=== PATIENT | female | born 1955 | race Caucasian/White ===

== ENCOUNTER 2016-08-17 09:40 | Inpatient (IN) | payer BC ==
--- NOTE | 2016-08-11 13:03 | HP ---
HISTORY AND PHYSICAL: DATE OF OFFICE VISIT: 08/11/16. DATE OF SURGERY: 08/17/16. SURGEON: Neisha Maravilla MD. PROCEDURE: Right total knee arthroplasty. CHIEF COMPLAINT: Right knee pain. HISTORY OF PRESENT ILLNESS: Ms. Townsend is a 60-year-old female with complaints of right knee pain. She has failed conservative management and has elected to proceed with a right total knee arthropla sty, which is scheduled for 08/17/[address] Sawant. PAST MEDICAL HISTORY: 1. Obesity. 2. Hypertension. 3. Sleep apnea. 4. Hypothyroidism. 5. Hiatal hernia. 6. Kidney stones. PAST SURGICAL HISTORY: 1. Gastric sleeve. 2. Partial parathyroidectomy. 3. Tubal ligation. 4. Ganglion cyst removal. 5. Tonsillectomy and adenoidectomy. CURRENT MEDICATIONS: 1. Vitamin D daily. 2. Multivitamin. 3. Vitamin B12. 4. Cymbalta 30 mg once a day. 5. Cozaar 50 mg once a day. 6. Metoprolol 25 mg once a day. 7. Ibuprofen 400 mg. 8. Tylenol 325. ALLERGIES: No known drug allergies. FAMILY HISTORY: Heart disease, hypertension, diabetes, breast cancer, and AFib. SOCIAL HISTORY: She is a 60-year-old female. She lives with her . She is a RN at [employer], [place]. She does not smoke or use drugs. She uses occasional alcohol. REVIEW OF SYSTEMS: A complete 14-point review of systems was reviewed with the patient, it was posi tive for hypothyroidism. PHYSICAL EXAMINATION GENERAL: She is a 60-year-old obese female. She is in no acute distress. VITAL SIGNS: She stands 5 feet tall, weighs 211 pounds. Her blood pressure is 168/98, her heart ra te is 63. HEENT: Normocephalic, atraumatic. NECK: Supple. No palpable lymph nodes. Trachea is midline. CARDIOLOGY: Regular rate and rhythm. Strong S1 and S2. No murmurs, gallops or rubs. No periphera l edema. PULMONARY: The lungs are clear to auscultation bilaterally. No wheezes, rales or rhonchi. ABDOMEN: Soft, nontender, nondistended. MUSCULOSKELETAL: Right lower extremity, the skin is intact. She has moderate effusion tenderness o flavio the medial and lateral joint line. No varus or valgus instability. Negative Alberto. She walk s with a slightly antalgic type gait favoring her right leg. Her lower extremity muscle group stren gth is intact at 5/5. She has 2+ dorsalis pedis pulse and intact sensation. NEUROLOGICAL: She is alert and oriented x3. Cranial nerves II through XII are intact. ASSESSMENT AND PLAN: Ms. Townsend is a 60-year-old female with complaints of right knee pain seconda ry to advanced osteoarthritis. She has failed conservative management and has elected to proceed wi th a right total knee arthroplasty, which is scheduled for 08/17/[address] Sawant discu ssed the risks and benefits of the surgery at today's visit and all of her questions were answered. Percocet, Colace, and Coumadin were sent to her pharmacy today for postoperative pain control and DV T prophylaxis. She will see Dr. Sawant back in 10 to 14 days after the surgery. BIJAN LIANG [id number]/[facility] #: [id number]
[~2016-08-17 09:40] MED LIST: Buffered Lidocaine 1% SYRIN* 3 ML/SYR SYRINGE INTRADERM ONE; Famotidine IV* 10 MG/ML 2 ML (20 mg) IV ONE; Famotidine IV* 10 MG/ML 2 ML (20 mg) ONE; Morphine INJ* 2 MG/ML 1 ML SYRINGE IV PRN; PROCHLORPERAZINE INJ 5 MG/ML 2 ML VIAL IV PRN; ceFAZolin 2 GM PREMIX(*) 2 GM/50 ML BAG IVPB ONE; oxyCODONE/Acetamin 5/325 MG* TAB PO PRN
[2016-08-17] MEDS ORDERED: Morphine PF AMP (0.5MG/ML)* 5 MG/10 ML AMP ONE (10:31)
[2016-08-17] MEDS ORDERED: fentaNYL* 50 MCG/ML 2 ML VIAL (100 MCG VIAL) ONE ×2 (10:31→14:46)
[2016-08-17] MEDS ORDERED: KETAMINE HCL* 50 MG/ML 10 ML VIAL ONE (10:31)
[2016-08-17] MEDS ORDERED: Midazolam* 1 MG/ML 10 ML VIAL (10 MG) ONE (10:31)
[2016-08-17] MEDS ORDERED: Ondansetron INJ* 2 MG/ML VIAL IV PRN (12:46)
[2016-08-17] MEDS ORDERED: EPHEDrine (Pressors)* 50 MG/ML VIAL IV PUSH PRN (12:46)
[2016-08-17] MEDS ORDERED: Lactated Ringers 500 ml BAG* 500 ML IV PRN (12:46)
[2016-08-17] MEDS ORDERED: diPHENhydraMINE IV* 50 MG/ML 1 ml VIAL (BENADRYL) IV PRN (12:46)
[2016-08-17] MEDS ORDERED: PROCHLORPERAZINE INJ 5 MG/ML 2 ML VIAL IV PRN (12:46)
[2016-08-17] MEDS ORDERED: oxyCODONE/Acetamin 5/325 MG* TAB PO PRN (12:46)
[2016-08-17] MEDS ORDERED: Hetastarch in NS* 500 ML IV PRN (12:46)
[2016-08-17] MEDS ORDERED: Nalbuphine* 20 MG/ML 1 ML VIAL IV PRN (12:46)
[2016-08-17] MEDS ORDERED: Ketorolac INJ* 15 MG/ML 1 ML VIAL IV PRN (12:46)
[2016-08-17] MEDS ORDERED: Scopolomine PATCH Remove* 1 NOTE MISC PATCH OFF SCH (13:00)
[2016-08-17] MEDS ORDERED: Hetastarch in NS* 500 ML IV ONE (13:12)
[2016-08-17] MEDS ORDERED: Ropivacaine 0.2% EPIDURAL* 200 MG/100 ML BAG EPIDURAL ONE (13:44)
[2016-08-17] MEDS ORDERED: Acetaminophen TAB* 325 MG PO PRN (14:37)
[2016-08-17] MEDS ORDERED: Bisacodyl SUPP* 10 MG SUPP PR PRN (14:37)
[2016-08-17] MEDS ORDERED: Magnesium Hydroxide LIQ* 30 ML UDC PO PRN (14:37)
[2016-08-17] MEDS ORDERED: LACTULOSE* 30 ML UDC PO PRN (14:37)
[2016-08-17] MEDS ORDERED: Polyethylene Glycol 3350* 17 GM PACKET PO PRN (14:37)
[2016-08-17] MEDS ORDERED: Phenylephrine INJ* 10 MG/ML 1 ML VIAL (10 MG) ONE (14:42)
[2016-08-17] MEDS ORDERED: Propofol* 500 MG/50 ML BTL ONE (14:42)
[2016-08-17] MEDS ORDERED: Bupivacaine 0.5% SDV PF* 30 ML VIAL ONE (14:42)
[2016-08-17] MEDS ORDERED: Scopolamine 1.5 mg* PATCH ONE (14:42)
[2016-08-17] MEDS ORDERED: Ondansetron INJ* 2 MG/ML VIAL ONE (14:43)
[2016-08-17] MEDS ORDERED: Dexamethasone IV* 4 MG/ML 1 ML (4 MG) ONE (14:43)
[2016-08-17] MEDS: fentaNYL* 50 MCG/ML 2 ML VIAL (100 MCG VIAL) IV PRN ×2 (14:47→14:59)
[2016-08-17] MEDS ORDERED: Naloxone* 0.4 MG/ML 1 ML VIAL IV PRN (14:54)
--- NOTE | 2016-08-17 15:23 | RAD ---
Indication: Postop RIGHT total knee replacement. Comparison: August 11, 2016 Technique: Portable AP and cross table lateral views RIGHT knee. Report: Status post total knee replacement. Anterior surgical drain in place. Post-op fluid and gas is seen in the joint space and anterior subcutaneous tissues. Alignment is anatomic. No periprosthetic fracture evident. IMPRESSION: Normal post-op appearance following RIGHT total knee replacement.
[2016-08-17] MEDS: Ropivacaine 0.2% EPIDURAL* 200 MG/100 ML BAG EPIDURAL SCH ×2 (15:25→23:15)
[2016-08-17] MEDS ORDERED: Warfarin TAB(*) 6 MG PO ONE (18:00)
[2016-08-17] MEDS: Docusate CAP* 100 MG PO SCH (20:53)
[2016-08-17] MEDS: ceFAZolin 1 GM in Dextrose (*) 1 GM/50 ML BAG IVPB SCH (20:53)
--- NOTE | 2016-08-17 23:04 | CONS ---
[facility] MEDICINE CONSULTATION REPORT: DATE OF CONSULTATION: 08/17/16 ATTENDING PHYSICIAN: Neisha Sawant MD CONSULTING PHYSICIAN: Shakeel Clinton MD (dictation provided by Blanquita Mccain NP ) REASON FOR CONSULTATION: Medical management in a patient admitted for right total knee arthroplasty. HISTORY OF PRESENT ILLNESS: Ms. Townsend is a 60-year-old female with past medical history of obesity, hypertension, sleep apnea who presented to the hospital today with plan for an elective right total knee arthroplasty. Please see the dictated H and P from Dr. Sawant for complete details. In brief, the patient had failed conservative management and opted for operative intervention. Ms. Townsend states that she recently had gastric sleeve surgery with Dr. Lauren in January. Since then, she has lost 65 pounds. Her plan was to undergo this surgery and the weight loss in an effort to get to a place where she could have bilateral knee surgery starting with right knee today. Prior to coming to the hospital, she was in a good state of health. She was seen by Dr. Viera prior to surgery for preoperative evaluation. Only plan at that point was for the patient to decrease duloxetine via slow taper. The patient does have a history of some very mild elevation in her TSH and plan is for Dr. Viera to manage initiation of thyroid hormone replacement when she is done with surgeries. In addition, the patient has a history of hypertension and takes metoprolol and losartan with good effect. PAST MEDICAL HISTORY: 1. Obesity. 2. Hypertension. 3. Sleep apnea. 4. Hypothyroidism. 5. Hiatal hernia. 6. Kidney stones. PAST SURGICAL HISTORY: 1. Gastric sleeve in January 2016. 2. Partial parathyroidectomy. 3. Tubal ligation. 4. Ganglion cyst removal. 5. Tonsillectomy. 6. Adenoidectomy. OUTPATIENT MEDICATIONS: 1. Vitamin D. 2. Multivitamin. 3. Vitamin B12. 4. Cymbalta 30 mg p.o. daily. 5. Cozaar 50 mg p.o. daily. 6. Metoprolol tartrate 25 mg p.o. q.a.m. 7. Ibuprofen 400 mg p.o. daily p.r.n. 8. Tylenol p.r.n. ALLERGIES: No known drug allergies. FAMILY HISTORY: Reportedly father is still alive. Mother at 38 of breast cancer. SOCIAL HISTORY: The patient denies alcohol, tobacco, or drug use. She lives with her , who is the healthcare proxy. REVIEW OF SYSTEMS: A 14-point review of systems was completed with Ms. Townsend today and all those not mentioned above were negative. PHYSICAL EXAMINATION: Vital Signs: Temperature 96.9, heart rate 50, respiratory rate 16, O2 saturation 100% on 2 L nasal cannula, blood pressure 118 /74. General: Ms. Townsend is sitting up in the bed. She is in no acute distress. She is calm and cooperative with my examination. Neuro: She is alert and oriented x3. She moves all extremities equally. There is no facial asymmetry or focal weakness. Heart: S1, S2. No murmur, rub, or gallop and regular. Lungs: Clear to auscultation bilaterally with no accessory muscle use and good aeration. The abdomen is soft, nontender with bowel sounds positive x4. Extremities: No cyanosis or edema. Skin is intact. DIAGNOSTIC STUDIES/LABORATORY DATA: Preoperatively, on 08/16/16, WBC 4.8, hemoglobin 13.2, hematocrit 40, platelet count 240. Sodium 139, potassium 4.3, chloride 107, serum bicarbonate 31, BUN 15, creatinine 0.69. ASSESSMENT: Ms. Townsend is a 60-year-old female with a past medical history of hypertension, gastric sleeve surgery with 65-pound weight loss with Dr. Lauren in January who presents today to the hospital with plan for right knee arthroplasty. RECOMMENDATIONS: 1. Right knee arthroplasty: The patient is postop day #0. Management per Orthopedic Surgery. The patient will have pain medications with bowel regimen. She will have physical and occupational therapy. Her H and H will be monitored closely. 2. History of hypertension. Plan to continue her losartan and metoprolol. 3. History of hypothyroidism. Plan to defer to Dr. Viera for management as an outpatient as she is already aware of this. 4. Sleep apnea. The patient will be monitored via pulse oximetry for overnight tonight. 5. DVT prophylaxis with Lovenox and warfarin per Dr. Sawant. 6. Disposition will be per orthopedic team. TIME SPENT: Approximately 60 minutes were spent on consultation of this patient with more than half the time spent with the patient at the bedside, reviewing the events leading up to and during this hospitalization thus far, performing the physical examination, and reviewing the plan of care. BLANQUITA MCCAIN, TRANSPORT PILOT [id number]/[facility] #: [id number] [facility]umar
[2016-08-18] MEDS: ceFAZolin 1 GM in Dextrose (*) 1 GM/50 ML BAG IVPB SCH ×2 (04:16→12:25)
[2016-08-18] MEDS ORDERED: Ondansetron TAB* 4 MG PO PRN (06:50)
[2016-08-18] MEDS ORDERED: oxyCODONE/Acetamin 5/325 MG* TAB PO PRN (06:50)
[2016-08-18] MEDS ORDERED: diPHENhydraMINE LIQ* 12.5 MG/5 ML UDC PO PRN (06:50)
[2016-08-18] MEDS ORDERED: Morphine INJ* 2 MG/ML 1 ML SYRINGE IV PRN (06:50)
[2016-08-18 07:04] LABS: Hematocrit 30 % (35-47); Hemoglobin 10.2 g/dl (12.0-16.0)
[2016-08-18] MEDS: oxyCODONE TAB* 5 MG TAB PO PRN ×3 (07:18→17:21)
[2016-08-18 07:24] LABS: BUN/Creatinine Ratio 22.5 (8-20); Calcium 8.4 mg/dL (8.6-10.3); EGFR African American 108.4 (>60); EGFR Non-African American 84.3 (>60); Potassium 3.7 mmol/L (3.5-5.0)
--- NOTE | 2016-08-18 07:29 | PN ---
Progress Note - Progress Note SOAP: Subjective: Pt. reports pain controlled overnight. Objective: RLE - drain removed, tip intact with 300 cc ss drainage. distally +df/pf, full sens lt, 2+ dp pulse. 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 xrays satisfactory possible d/c to home tomorrow
--- NOTE | 2016-08-18 08:12 | OP ---
DATE OF OPERATION: 08/17/16 - ROOM #447 DATE OF : 57 SURGEON: Neisha Sawant MD REGIONAL GEODETIC ADVISOR: BIJAN Fine ANESTHESIOLOGIST: Dr. Recinos. ANESTHESIA: Spinal with adductor nerve block. PRE-OP DIAGNOSIS: Severe end-stage degenerative osteoarthritis of the right knee joint. POST-OP DIAGNOSIS: Severe end-stage degenerative osteoarthritis of the right knee joint. OPERATIVE PROCEDURE: Right total knee arthroplasty. TOURNIQUET TIME: 50 minutes. COMPLICATIONS: None. ESTIMATED BLOOD LOSS: 300 mL. SPECIMENS: Bone and cartilage from the right knee joint sent to pathology. HARDWARE USED: This is [employer] cemented total knee arthroplasty hardware. For the femur, a size 5 right narrow Oxinium femoral component. For the tibia, a size 3 tibial base plate. For the insert, a 15 mm posterior stabilized articular insert size 3-4. For the patella, 29-mm 3-peg all-poly patella. BRIEF HISTORY/INDICATIONS: Ms. Townsend is a 60-year-old female with years of severe right knee pain. Radiographs showed [id number] contact. She failed conservative treatment with antiinflammatories, pain medications, intraarticular injections, physical therapy, and weight loss. She elected to have right total knee arthroplasty due to continued severe pain and decreased quality of life. Informed consent was obtained from the patient. She understood the risks of the procedure included, but were not limited to bleeding, infection, damage to nearby structures, continued pain, need for further surgery, intraoperative fracture, nerve palsy, hardware failure or loosening, stroke, heart attack, blood clot, and . She wished to proceed. INTRAOPERATIVE FINDINGS: Intraoperatively, the patient had severe arthritis of the right knee joint with significant bone loss along the medial tibial plateau. Complete loss of cartilage in a tricompartmental fashion. Preop flexion contracture was 10 degrees. DESCRIPTION OF PROCEDURE: Ms. Townsend was identified in the preanesthesia unit. Her right lower extremity was marked as the correct operative side. Informed consent was signed and placed in the chart. The patient was taken to the operating room and placed under spinal anesthesia with an adductor nerve block. Novak catheter was placed. Tourniquet was placed on the right thigh. The right lower extremity was prepped and draped in the usual sterile fashion. Preop time-out was made to correctly identify the patient side and site. Appropriate preoperative antibiotics were given within 1 hour of incision. Tourniquet was inflated until the tourniquet time for this procedure was 50 minutes. A 14 cm midline incision was made with the 10 blade and carried down to the extensor mechanism. A new 10 blade was used to make a standard medial parapatellar arthrotomy. Patella was subluxed laterally. Electrocautery was used to subperiosteally elevate soft tissue off the superomedial tibia to the mid sagittal plane. A large amount of osteophyte along the medial tibial plateau was carefully removed with a Rongeur. The knee was flexed up. A drill was used to enter the distal femur. Intramedullary distal femoral cutting guide was placed and pinned into proper position. Oscillating saw was used to make the appropriate distal femoral cut. The external rotation guide was pinned on the distal femur, and the distal femur was sized to a size 5. Size 5 multi-cutting jig was pinned on the distal femur. The oscillating saw was used to make the appropriate four chamfer cuts. The PCL was completely released and the tibia was subluxed anteriorly. Extramedullary tibial cutting guide was placed and pinned into proper position. An oscillating saw was used to make the proximal tibial cut. This cut was made perpendicular to the mechanical axis of the tibia. The knee was brought out into full extension. The spacer block had good fit. There was good medial and lateral ligamentous balancing. Flexion and extension gaps were well balanced. The knee was flexed up. Lamina independent sales representative was placed both medially and laterally. Any remaining meniscus was carefully removed with electrocautery. Curved osteotome was used to remove any posterior osteophytes. Tibial tray and drop neil were placed and once again confirmed satisfactory tibial cut. A size 5 narrow right femoral trial was chosen and impacted onto the distal femur. This had excellent fit. The box for the posterior stabilized implant was prepared using a reamer and box cut osteotome. A trial size 9 insert with an 11 mm insert trial was placed. The knee was taken through a range of motion and noted to have full extension to 120 degrees of flexion with good patellofemoral tracking. The patella was everted and had extensive wear. 9 mm of patellar bone and cartilage were carefully removed with an oscillating saw. The patella was sized to a size 29. The three peg holes were drilled through the size 29 guide. A 29 trial patella was placed and the knee was taken through a range of motion. There was good patellofemoral tracking. All trials were carefully removed at this time. The tibia was subluxed anteriorly and sized to a size 3. Proximal tibia was prepared using keel punch size 3. All bony cut surfaces were copiously irrigated with sterile saline and dried. Final implants were cemented into place and starting with the tibia, followed by the femur, and lastly the patella. A 13-mm insert trial was placed while the knee was brought out in full extension. The cement was allowed to fully cure, and tourniquet was turned down at 50 minutes. Once the cement was fully cured, the knee was copiously irrigated with sterile saline. The insert trial was removed. Any extra cement was carefully removed from around the implants. Electrocautery was used to obtain meticulous hemostasis. The 13 and 15 mm insert trials were trialed. A 15 mm insert trial had the best stability and range of motion of the knee. A 15 mm posterior stabilized articular insert was chosen as the final implant, and locked into position on the tibial tray. Stability of the insert was checked and rechecked, and noted to be stable. The knee was once again copiously irrigated with sterile saline. The extensor mechanism was closed over a medium Hemovac drain using interrupted #1 Vicryls. The rest of the incision was closed in a layered fashion using 0 and 2-0 Vicryls. The skin was closed using running 3-0 nylon suture. Sterile Xeroform, 4x4s, and Webril were used to cover the incision. John wrap and cold pack were placed over this. The patient's anesthesia was reversed without difficulty. She was taken to the PACU in stable condition. Intended weightbearing will be weightbearing as tolerated. Intended DVT prophylaxis will be Coumadin with a Lovenox bridge. [id number]/[facility] #: [id number] [place]
[2016-08-18] MEDS: Losartan TAB* 25 MG PO SCH (09:15)
[2016-08-18] MEDS: Metoprolol Tartrate TAB* 25 MG PO SCH (09:15)
[2016-08-18] MEDS: oxyCODONE/Acetamin 5/325 MG* TAB PO PRN ×2 (09:16→12:59)
[2016-08-18] MEDS: Docusate CAP* 100 MG PO SCH ×2 (09:17→19:56)
[2016-08-18] MEDS: DULoxetine DR CAP* 30 MG CAP.DR PO SCH (09:17)
[2016-08-18] MEDS ORDERED: Ondansetron INJ* 2 MG/ML VIAL IV ONE (11:36)
--- NOTE | 2016-08-18 14:09 | PN ---
Progress Note - Progress Note Note: Anesthesia duramorph/epidural followup. No pain last night. Epidural out this AM. Neuro ok, VSS, no HELLER. s/p TKR, continue oral meds.
[2016-08-18] MEDS: Enoxaparin(*) 30 MG/0.3 ML SYR SUBCUT SCH (14:46)
[2016-08-18] MEDS ORDERED: Warfarin TAB(*) 4 MG PO SCH (17:00)
--- NOTE | 2016-08-18 18:15 | PN ---
Subjective Date of Service: 08/18/16 Interval History: Patient seen and examined at bedside. Denies fever, chills, shortness of breath , chest discomfort, V/D. Pt reports nausea earlier today, that has resolved. Family History: Unchanged from Admission Social History: Unchanged from Admission Past Medical History: Unchanged from Admission Objective Active Medications: Acetaminophen (Tylenol Tab*) 650 mg PO Q4H PRN Reason: PAIN OR TEMPERATURE Bisacodyl (Dulcolax Supp*) 10 mg DE DAILY PRN Reason: constipation Diphenhydramine HCl (Benadryl Liq*) 12.5 mg PO Q6H PRN Reason: itching Docusate Sodium (Colace Cap*) 100 mg PO BID RUPA Duloxetine HCl (Cymbalta Cap*) 30 mg PO QAM RUPA Enoxaparin Sodium (Lovenox(*)) 30 mg SUBCUT Q24H [facility] Lactated Ringer's (Lactated Ringers 1000 Ml Bag*) 1,000 mls @ 100 mls/hr IV PER RATE RUPA Lactulose (Lactulose*) 30 ml PO Q6H PRN Reason: constipation Losartan Potassium (Cozaar Tab*) 50 mg PO DAILY RUPA Magnesium Hydroxide (Milk Of Magnesia Liq*) 30 ml PO Q6H PRN Reason: constipation Metoprolol Tartrate (Lopressor Tab*) 25 mg PO QAM [facility] Morphine Sulfate (Morphine Inj (Syringe)*) 2 mg IV Q2H PRN Reason: PAIN Ondansetron HCl (Zofran Tab*) 4 mg PO Q6H PRN Reason: NAUSEA Oxycodone HCl (Roxycodone Tab*) 10 mg PO Q4H PRN Reason: SEVERE PAIN Oxycodone/Acetaminophen (Percocet 5/325 Tab*) 1 tab PO Q3H PRN Reason: PAIN - MODERATE Oxycodone/Acetaminophen (Percocet 5/325 Tab*) 2 tab PO Q3H PRN Reason: PAIN - MODERATE Pharmacy Profile Note (Scopolomine Patch Remove*) 1 note PATCH OFF .AFTER 72 HOURS ONE Pharmacy Profile Note (Coumadin Daily Reminder*) 1 note FOLLOW UP 1700 [facility] Polyethylene Glycol/Electrolytes (Miralax*) 17 gm PO DAILY PRN Reason: Constipation Warfarin Sodium (Coumadin Tab(*)) 8 mg PO DAILY@1700 [facility] Reason: Protocol Vital Signs 0308/17/16 08/17/16 19:02 19:15 21:04 Temperature 97.4 F 97.6 F Pulse Rate 63 52 Respiratory 16 16 16 Rate Blood Pressure 107/82 107/48 (mmHg) O2 Sat by Pulse 99 91 Oximetry 08/17/16 08/18/16 08/18/16 23:21 03:21 04:16 Temperature 97.4 F 98.2 F Pulse Rate 57 59 Respiratory 16 16 16 Rate Blood Pressure 114/55 109/51 (mmHg) O2 Sat by Pulse 100 99 Oximetry 08/18/16 08/18/16 08/18/16 07:20 07:31 09:16 Temperature 98.0 F Pulse Rate 59 Respiratory 16 16 20 Rate Blood Pressure 115/58 (mmHg) O2 Sat by Pulse 100 100 Oximetry 08/18/16 08/18/16 08/18/16 10:56 11:38 11:55 Temperature 98.1 F Pulse Rate 63 Respiratory 18 16 21 Rate Blood Pressure 152/76 (mmHg) O2 Sat by Pulse 100 Oximetry 08/18/16 08/18/16 08/18/16 12:59 15:28 16:00 Temperature 98.1 F Pulse Rate 59 Respiratory 18 18 Rate Blood Pressure 129/66 (mmHg) O2 Sat by Pulse 94 94 Oximetry 08/18/16 08/18/16 17:21 17:35 Temperature Pulse Rate Respiratory 18 Rate Blood Pressure (mmHg) O2 Sat by Pulse 94 Oximetry Oxygen Devices in Use Now: None Appearance: NAD, sitting up in a chair Eyes: No Scleral Icterus, PERRLA Ears/Nose/Mouth/Throat: NL Teeth, Lips, Gums, Mucous Membranes Moist Neck: NL Appearance and Movements; NL JVP, Trachea Midline Respiratory: Symmetrical Chest Expansion and Respiratory Effort, Clear to Auscultation Cardiovascular: NL Sounds; No Murmurs; No JVD, RRR Abdominal: NL Sounds; No Tenderness; No Distention Extremities: No Edema Skin: No Rash or Ulcers, - - Dressing to right knee clean, dry and intact Neurological: Alert and Oriented x 3, NL Muscle Strength and Tone Lines/Tubes/Other Access: Clean, Dry and Intact Peripheral IV - site benign Nutrition: Taking PO's Result Diagrams: 08/18/16 06:35 08/18/16 06:35 Assess/Plan/Problems-Billing Assessment: Ms. Townsend is a 60 yo female with PMH significant for obesity, HTN, and sleep apnea who presented to the hospital for an elective right total knee arthroplasty with Dr. Sawant. - Patient Problems (1) Status post right knee replacement Code(s): Z96.651 - PRESENCE OF RIGHT ARTIFICIAL KNEE JOINT SNOMED Code(s): 075128553 Comment: - POD #1, management per ortho - Continue PT, OT, bowel regime and pain medication - Trend HH (2) HTN (hypertension) Code(s): I10 - ESSENTIAL (PRIMARY) HYPERTENSION SNOMED Code(s): 33760753 Comment: - Mostly normotensive - Continue losartan and metoprolol (3) Hypothyroidism Code(s): E03.9 - HYPOTHYROIDISM, UNSPECIFIED SNOMED Code(s): 01176091 Comment: - Will defer to Dr. Viera for management as an outpatient (4) Sleep apnea Code(s): G47.30 - SLEEP APNEA, UNSPECIFIED SNOMED Code(s): 81852398 (5) DVT prophylaxis Code(s): GNI5229 - SNOMED Code(s): 355765720 Comment: - Warfarin and Lovenox per Ortho (6) Full code status Code(s): Z78.9 - OTHER SPECIFIED HEALTH STATUS SNOMED Code(s): 380652526 Status and Disposition: Inpatient. Disposition per Ortho. Will sign off at this time, please call with any questions.
[2016-08-19] MEDS: oxyCODONE/Acetamin 5/325 MG* TAB PO PRN ×3 (00:13→11:57)
[2016-08-19] MEDS: oxyCODONE TAB* 5 MG TAB PO PRN (03:22)
[2016-08-19 07:55] LABS: Hematocrit 32 % (35-47); Hemoglobin 11.1 g/dl (12.0-16.0)
[2016-08-19] MEDS: Docusate CAP* 100 MG PO SCH (08:13)
[2016-08-19] MEDS: Metoprolol Tartrate TAB* 25 MG PO SCH (08:13)
[2016-08-19] MEDS: DULoxetine DR CAP* 30 MG CAP.DR PO SCH (08:13)
[2016-08-19] MEDS: Losartan TAB* 25 MG PO SCH (08:13)
--- NOTE | 2016-08-19 09:50 | PN ---
Progress Note - Progress Note SOAP: Subjective: Pt is doing well. Pain is well controlled. Doing well with PT. Denies CP,SOB or calf pain. Objective: PE: 60 WDWN F in NAD lying in bed comfortably RLE- inc w/o erythema or signs of infection, dressing changed, +PF/DF ankle, calf soft nontender, NVI Vital Signs Temp Pulse Resp BP Pulse Ox 98.2 F 72 18 132/77 100 08/19/16 07:47 08/19/16 09:09 08/19/16 07:47 08/19/16 09:09 08/19/16 07:47 Laboratory Results - last 24 hr 08/19/16 08/19/16 07:27 07:27 Hgb 11.1 L Hct 32 L INR (Anticoag Therapy) 1.29 H Assessment: POD 2 s/p Right TKA Plan: DC to home with VNS WBAT RLE- cont PT cont coumadin, colace, percocet F/U 10-14 days
[2016-08-19 11:54] VITALS: BP 141/74
[2016-08-19] MEDS: Enoxaparin(*) 30 MG/0.3 ML SYR SUBCUT SCH (13:21)
--- NOTE | 2016-08-20 06:31 | DS ---
DISCHARGE SUMMARY: DATE OF ADMISSION: 08/17/16 DATE OF DISCHARGE: 08/19/16 PROVIDER: Dr. Neisha Sawant. ADMITTING DIAGNOSIS: Status post right total knee arthroplasty due to severe right knee arthritis. SECONDARY DIAGNOSES: 1. Obesity. 2. Hypertension. 3. Sleep apnea. 4. Hypothyroidism. 5. Hiatal hernia. 6. Kidney stones. CONSULTATIONS: Hospitalist, PT, and OT. HISTORY OF PRESENT ILLNESS: Ms. Townsend is a 60-year-old female, who presented to the clinic with complaints of ongoing right knee pain due to severe osteoarthritis. She failed conservative measures and therefore agreed to undergo a right total knee arthroplasty with Dr. Sawant on 08/17/16. HOSPITAL COURSE: Ms. Townsend was admitted to [facility] on 08/17/16. She underwent a right total knee arthroplasty. Postoperatively, she recovered on the short stay surgical unit. Postop day 1, Novak was removed and she was able to urinate on her own. She was advanced to a regular diet without difficulty and her pain was controlled with oral Percocet. She was restarted on home medications. Her labs and vitals remained stable. H and H were 10.2 and 30 and INR was 1.09 after 6 mg of Coumadin. She was able to weight bear as tolerated on the right lower extremity. She advanced appropriately with physical therapy and occupational therapy. On postop day 2, H and H were 11.1 and 32. INR was 1.29 after 8 mg of Coumadin. She was orthopedically and medically stable for discharge to home with VNS services. DISCHARGE CONDITION: Stable. DISCHARGE MEDICATIONS: At home medications continued at discharge to include: 1. Vitamin D 5000 units by mouth every morning. 2. Cymbalta 30 mg by mouth every morning. 3. Metoprolol tartrate 25 mg by mouth every morning. 4. Vitamin B12 1000 mcg sublingual every other day. 5. Ibuprofen 600 mg to 800 mg p.o. twice a day as needed for pain. 6. Losartan 50 mg by mouth daily. 7. Multivitamin 1 tab by mouth daily. New medications on discharge to include: 1. Colace 100 mg capsule by mouth twice a day. 2. Warfarin 2 mg take daily as directed by doctor. 3. Percocet 5/325 one to two tabs q.4 to 6 hours as needed for pain. DISCHARGE INSTRUCTIONS: The patient is weightbearing as tolerated right lower extremity. Activity as directed by Physical Therapy. She is to keep the dressing dry and intact. VNS will change dressing daily. May shower postop day 4, do not submerge in water such as bath, pools, or hot tubs. Suture removal on postop visit with Dr. Sawant. The patient was instructed to call the office or go to the ER if developed shortness of breath, chest pain, calf pain, or tenderness or fever greater than 101.5 degrees Fahrenheit. The patient will follow up with Dr. Sawant in 10 to 14 days for followup, suture removal, and x- rays. The patient will continue Percocet for pain, Colace for constipation, and Coumadin x1 month for DVT prophylaxis. The patient will take 8 mg of Coumadin Sunday, 8 mg Sunday, and will have blood redrawn on Sunday. The patient was instructed not to take aspirin or ibuprofen while on Coumadin. BIJAN REID [id number]/[facility] #: [id number] MTDD
[2016-08-20] MEDS ORDERED: Scopolomine PATCH Remove* 1 NOTE MISC PATCH OFF ONE (12:49)
== END 2016-08-19 13:40 | disposition home health service (06) | DRG 302 ==
LOC: AA 09:40 → SSU 17:15
PROVIDERS: ADMIT Orthopaedic Surgery Adult Reconstructive Orthopaedic Surgery; ATTEND Orthopaedic Surgery Adult Reconstructive Orthopaedic Surgery
PROC: 0SRC0J9 Replacement of Right Knee Joint with Synthetic Substitute, Cemented, Open Approach (ICD-10-PCS; principal; 2016-08-17 12:00)
DX: M17.11 Unilateral primary osteoarthritis, right knee (principal); Z68.41 Body mass index [BMI] 40.0-44.9, adult; I10 Essential (primary) hypertension; E66.9 Obesity, unspecified; G47.30 Sleep apnea, unspecified; E03.9 Hypothyroidism, unspecified; K44.9 Diaphragmatic hernia without obstruction or gangrene; Z87.442 Personal history of urinary calculi; Z79.01 Long term (current) use of anticoagulants; Z98.51 Tubal ligation status; Z98.84 Bariatric surgery status; Z82.49 Family history of ischemic heart disease and other diseases of the circulatory system; Z83.3 Family history of diabetes mellitus; Z80.3 Family history of malignant neoplasm of breast
CPT/HCPCS: 36415; 80048; 85014; 85018; 85610; 88305; 88311; A9270-GY; C1776; J0690; J1100; J1650; J2250; J2270; J2405; J2704; J2795; J3010

== ENCOUNTER 2016-10-26 08:42 | Inpatient (IN) | payer BC ==
--- NOTE | 2016-10-20 20:40 | HP ---
HISTORY AND PHYSICAL: DATE OF ADMISSION/SURGERY: 10/26/16 PROCEDURE: Left total knee arthroplasty. CHIEF COMPLAINT: Left knee pain. HISTORY OF PRESENT ILLNESS: Ms. Townsend is a 61-year-old female with continued complaints of left kn ee pain. She has failed conservative management and has elected to proceed with a left total knee a rthroplasty which is scheduled for 10/26/[address] Sawant. PAST MEDICAL HISTORY: Hypertension, obesity, sleep apnea, hypothyroidism and hiatal hernia. PAST SURGICAL HISTORY: Gastric sleeve, partial parathyroidectomy, tubal ligation, ganglion cyst rem oval, right total knee arthroplasty, tonsillectomy, adenoidectomy. CURRENT MEDICATIONS: 1. Percocet. 2. Colace. 3. Vitamin D. 4. Multivitamin. 5. Vitamin B. 6. Cymbalta 20 mg once a day. 7. Cozaar 50 mg once a day. 8. Ibuprofen. 9. Tylenol as needed. ALLERGIES: No known drug allergies. FAMILY HISTORY: Heart disease, hypertension, diabetes, breast cancer and Afib. SOCIAL HISTORY: She is a 61-year-old female. She lives with her . She is an RN at [employer]. She does not smoke or use drugs. REVIEW OF SYSTEMS: A complete 14-point review of systems was reviewed with the patient and was posi tive for hypothyroidism and was negative or anesthesia problems, history of DVT, PE, hepatitis C or HIV. PHYSICAL EXAMINATION GENERAL: She is a 61-year-old obese female. She is in no acute distress. VITAL SIGNS: She stands 5 feet tall, weighs 200 pounds. Her blood pressure is 146/91, her heart ra te is 64. HEENT: Normocephalic, atraumatic. NECK: Supple. No palpable lymph nodes. Trachea is midline. PULMONARY: Lungs are clear to auscultation bilaterally. CARDIO: Regular rate and rhythm. ABDOMEN: Soft, nontender, nondistended. MUSCULOSKELETAL: Left lower extremity skin is intact. No open wounds or abrasions. She has full r angela of motion of the left knee. She has tenderness over the mediolateral joint line. No varus or valgus instability. Lower extremities muscle group strengths are intact at 5/5. She has intact sen sation. 2+ dorsalis pedis pulses. NEUROLOGIC: She is alert and oriented x3. Cranial nerves II through XII are intact. IMPRESSION: Ms. Townsend is a 61-year-old female with continued complaints of left knee pain. She h as failed conservative management and has elected to proceed with a left total knee arthroplasty [facility] is scheduled for 10/26/[address] Sawant discussed the risks and benefits of the surg evita at today's visit and all her questions were answered. Percocet, Coumadin, Colace were sent to [facility] for postoperative pain control and DVT prophylaxis. She will follow up with Dr. Sawant 1 4 days after the surgery. BIJAN LIANG [id number]/[facility] #: [id number]
[~2016-10-26 08:42] MED LIST changes: +Buffered Lidocaine 1% SYR 3ML* 3 ML/SYR SYRINGE INTRADERM ONE; -Buffered Lidocaine 1% SYRIN* 3 ML/SYR SYRINGE INTRADERM ONE; -Famotidine IV* 10 MG/ML 2 ML (20 mg) ONE; -Morphine INJ* 2 MG/ML 1 ML SYRINGE IV PRN; -PROCHLORPERAZINE INJ 5 MG/ML 2 ML VIAL IV PRN; -ceFAZolin 2 GM PREMIX(*) 2 GM/50 ML BAG IVPB ONE; -oxyCODONE/Acetamin 5/325 MG* TAB PO PRN
[2016-10-26] MEDS ORDERED: Famotidine IV* 10 MG/ML 2 ML (20 mg) ONE (09:09)
[2016-10-26] MEDS ORDERED: ceFAZolin 2 GM PREMIX(*) 2 GM/50 ML BAG IVPB ONE (09:09)
[2016-10-26] MEDS ORDERED: Buffered Lidocaine 1% SYRIN* 5 ML/SYR SYRINGE ONE (09:10)
[2016-10-26] MEDS ORDERED: fentaNYL* 50 MCG/ML 2 ML VIAL (100 MCG VIAL) ONE (09:34)
[2016-10-26] MEDS ORDERED: Midazolam* 1 MG/ML 5 ML VIAL (5 MG) ONE (09:34)
[2016-10-26] MEDS ORDERED: Morphine PF AMP (0.5MG/ML)* 5 MG/10 ML AMP ONE (11:41)
[2016-10-26] MEDS ORDERED: KETAMINE HCL* 50 MG/ML 10 ML VIAL ONE (12:06)
[2016-10-26] MEDS ORDERED: Midazolam* 1 MG/ML 2 ML VIAL (2 MG) ONE (12:14)
[2016-10-26] MEDS ORDERED: Propofol* 10 MG/ML 20 ML BTL IV PUSH ONE ×2 (12:32→13:11)
[2016-10-26] MEDS ORDERED: Ondansetron INJ* 2 MG/ML VIAL ONE (12:46)
[2016-10-26] MEDS ORDERED: Ketorolac INJ* 30 MG/ML 1 ML VIAL ONE (12:46)
[2016-10-26] MEDS ORDERED: Nalbuphine* 20 MG/ML 1 ML VIAL IV PRN (13:10)
[2016-10-26] MEDS ORDERED: Naloxone* 0.4 MG/ML 1 ML VIAL IV PRN (13:10)
[2016-10-26] MEDS ORDERED: Ondansetron INJ* 2 MG/ML VIAL IV PRN (13:10)
[2016-10-26] MEDS ORDERED: DiMENhydriNATE IV* 50 MG/ML VIAL IV PUSH PRN (13:14)
[2016-10-26] MEDS ORDERED: HYDROmorphone* 1 MG/ML 1 ML SYR IV PRN (13:14)
[2016-10-26] MEDS ORDERED: oxyCODONE/Acetamin 5/325 MG* TAB PO PRN (13:14)
[2016-10-26] MEDS ORDERED: Labetalol IV* 5 MG/ML 20 ML VIAL ONE (14:08)
[2016-10-26] MEDS ORDERED: Losartan TAB* 25 MG PO ONE (14:15)
[2016-10-26] MEDS ORDERED: Polyethylene Glycol 3350* 17 GM PACKET PO PRN (14:28)
[2016-10-26] MEDS ORDERED: Bisacodyl SUPP* 10 MG SUPP PR PRN (14:28)
[2016-10-26] MEDS ORDERED: HYDROmorphone* 1 MG/ML 1 ML SYR ONE (15:18)
--- NOTE | 2016-10-26 15:50 | RAD ---
Indication: Immediate postop exam following LEFT total knee replacement. Comparison: October 20, 2016 Technique: Portable AP and cross table lateral views LEFT knee. Report: Status post total knee replacement. Anterior surgical drain in place. Post-op fluid and gas is seen in the joint space and anterior subcutaneous tissues. Alignment is anatomic. No periprosthetic fracture evident. IMPRESSION: Unremarkable immediate postoperative appearance following LEFT knee replacement.
[2016-10-26] MEDS ORDERED: Warfarin TAB(*) 6 MG PO ONE (17:00)
[2016-10-26] MEDS: oxyCODONE/Acetamin 5/325 MG* TAB PO PRN ×2 (17:16→21:51)
[2016-10-26] MEDS: Ibuprofen TAB* 600 MG PO SCH ×2 (17:17→23:26)
[2016-10-26] MEDS: ceFAZolin 1 GM in Dextrose (*) 1 GM/50 ML BAG IVPB SCH (20:12)
[2016-10-26] MEDS: Magnesium Hydroxide LIQ* 30 ML UDC PO SCH (21:50)
[2016-10-26] MEDS: Docusate CAP* 100 MG PO SCH (21:51)
--- NOTE | 2016-10-26 23:32 | CONS ---
CONSULTATION REPORT: DATE OF CONSULT: 10/26/16 AGE: 61. PRIMARY CARE PROVIDER: Sofy Viera MD. ATTENDING PHYSICIAN: Maury Metz MD (dictated by Monique Toney NP). PHYSICIAN REQUESTING CONSULTATION: Neisha Sawant MD. REASON FOR CONSULTATION: Co-medical management of the patient with a history of hypertension and obstructive sleep apnea. HISTORY OF PRESENT ILLNESS: Ms. Townsend is a 61-year-old female with past medical history significant for obesity, hypertension, and sleep apnea who presented to the hospital today for an elective left total knee arthroplasty with Dr. Sawant. Postoperatively, she is doing well. Her pain is controlled. The patient states that leading up to her surgery she has been in a good state of health with the exception of left knee pain. The patient denies any recent fevers, chills, shortness of breath, chest pain, nausea, vomiting, or urinary symptoms. Hospitalists were asked to assist with the management of this patient during the postoperative period. PAST MEDICAL HISTORY: 1. Hypertension. 2. Hyperparathyroidism. 3. Obesity. 4. Sleep apnea, with CPAP at home. 5. Hyperthyroidism - Graves disease, status post radioactive iodine treatment, 2007. 6. Pancreatitis. 7. Thyroid nodules. 8. Hiatal hernia. 9. Kidney stones. PAST SURGICAL HISTORY: 1. Status post gastric sleeve in 2015. 2. Status post partial parathyroidectomy in 2013. 3. Status post tubal ligation in 1994. 4. Status post ganglion cyst excision. 5. Status post right total knee arthroplasty, August 2016. 6. Status post tonsillectomy as a child. 7. Status post adenoidectomy as a child. 8. Status post lithotripsy and stent insertion in 2005. 9. Status post ureteral stent insertion in 2012. 10. Status post wisdom teeth extraction. HOME MEDICATIONS: Include: 1. Vitamin D3 5000 IU oral daily. 2. Multivitamin 1 tablet oral daily. 3. Vitamin B12 500 mcg oral daily. 4. Cymbalta 20 mg oral daily. 5. Cozaar 50 mg oral daily. 6. Ibuprofen 200 to 400 mg oral daily as needed for pain. 7. Acetaminophen 500 mg oral daily as needed for pain. ALLERGIES: No known drug allergies. FAMILY HISTORY: The patient's father is alive with a history of atrial fibrillation and heart disease. The patient's father also has a history of diabetes mellitus in addition to her maternal grandmother. The patient's mother passed at age 38 from uterine and breast cancer. The patient's sister has a history of breast cancer. The patient's paternal aunt has a history of colon cancer. SOCIAL HISTORY: The patient denies tobacco or recreational drug use. She drinks a glass of wine daily. The patient is a registered nurse at [employer]. She lives with her , Agus Townsend, who will be her surrogate decision maker in the event she is unable to make decisions for herself. REVIEW OF SYSTEMS: I performed a 14-point review of systems. All the pertinent positives and negatives are mentioned in the history of present illness. The remaining review of systems are negative. PHYSICAL EXAMINATION: Vital Signs: Temperature 97.7, heart rate 52, respiratory rate 16, O2 saturation 99% on room air, blood pressure 139/84. Appearance: The patient is alert, appears to be in no acute distress. HEENT: Normocephalic, atraumatic. Pupils are equal and reactive to light. Extraocular movements are intact. Cardiovascular: Regular rate and rhythm. S1 , S2 crisp. There are no murmurs, rubs, or gallops heard. Extremities: There is no lower extremity edema. DP and PT pulses are 2+ and symmetric. Respiratory : There is no accessory muscle use and the lungs are clear to auscultation bilaterally. Abdomen: Soft, nontender, nondistended. There are bowel sounds present x4. Musculoskeletal: There is no clubbing or cyanosis noted. The patient exhibits good strength in all extremities. Skin: There is a dressing to the patient's left knee that is clean, dry and intact. Neurological: Cranial nerves II through XII are grossly intact. The patient moves all extremities. Psychological: The patient is calm and cooperative. DIAGNOSTIC STUDIES/LAB DATA: Preoperative data from 10/20/16: Sodium 138, potassium 4.3, chloride 103, CO2 28, BUN 21, creatinine 0.67, glucose 139. White blood cell count 5.7, hemoglobin 12.7, hematocrit 39, and platelet count 289. Urinalysis negative. EKG from 08/08/16 shows a sinus bradycardia with a rate of 51 and no acute signs of ischemia. Left knee x-ray from today. Radiologist's impression: Unremarkably immediate postoperative appearance following left knee replacement. IMPRESSION: Ms. Townsend is a 61-year-old female with past medical history significant for hypertension, obesity, sleep apnea who presents to the hospital for an elective left total knee arthroplasty. Hospitalists were asked to assist with the co-medical management of this patient during her hospitalization. ASSESSMENT/PLAN: 1. Status post left total knee arthroplasty. Postop day. Management will be per Orthopedic Surgery. The patient will have a pain regimen in addition to a bowel regimen. Her hemoglobin and hematocrit will be trended. She will have urinary catheter through postop day 1. She will have physical therapy and occupational therapy. 2. Hypertension: The patient will be continued on her home Cozaar. 3. Obstructive sleep apnea: The patient will be continued on her home CPAP. 4. Fluids, electrolytes, and nutrition: The patient will be on a regular diet. 5. DVT prophylaxis: The patient will be on Lovenox bridged to warfarin per Orthopedic Surgery. 6. Code status: Full code. 7. Disposition: Inpatient with disposition per Orthopedic Surgery. TIME SPENT: The time for this consultation was 60 minutes and 30 minutes were spent [id number] with the patient discussing medications, past medical history , and the events leading up to her arrival today and performing a physical examination. The case has been reviewed with the attending, Dr. Metz, who agrees with the plan of care. Reviewed by GIA HOWELL-Micki 10/28/16 [id number] CC: Sofy Viera MD; Neisha Sawant MD* [id number]/[facility] #: [id number] MTDD
[2016-10-27] MEDS: Ibuprofen TAB* 600 MG PO SCH ×2 (00:23→05:52)
[2016-10-27] MEDS: oxyCODONE/Acetamin 5/325 MG* TAB PO PRN ×6 (02:26→20:42)
[2016-10-27] MEDS: ceFAZolin 1 GM in Dextrose (*) 1 GM/50 ML BAG IVPB SCH ×2 (04:13→11:54)
[2016-10-27] MEDS ORDERED: oxyCODONE TAB* 5 MG TAB PO PRN (05:00)
[2016-10-27] MEDS ORDERED: Ondansetron INJ* 2 MG/ML VIAL IV PRN (05:00)
[2016-10-27] MEDS ORDERED: Morphine INJ* 10 MG/ML 1 ML SYRINGE IV PRN (05:00)
[2016-10-27] MEDS ORDERED: Acetaminophen TAB* 325 MG PO PRN (05:00)
[2016-10-27] MEDS ORDERED: diPHENhydraMINE IV* 50 MG/ML 1 ml VIAL (BENADRYL) IV PRN (05:00)
[2016-10-27] MEDS ORDERED: Ondansetron TAB* 4 MG PO PRN (05:00)
[2016-10-27] MEDS ORDERED: diPHENhydraMINE PO* 25 MG PO PRN (05:00)
[2016-10-27 06:58] LABS: Hematocrit 26 % (35-47); Hemoglobin 8.6 g/dl (12.0-16.0)
[2016-10-27 07:14] LABS: BUN/Creatinine Ratio 16.7 (8-20); Calcium 7.9 mg/dL (8.6-10.3); EGFR African American 117.5 (>60); EGFR Non-African American 91.4 (>60); Potassium 3.5 mmol/L (3.5-5.0)
[2016-10-27] MEDS ORDERED: DULoxetine DR CAP* 30 MG CAP.DR PO SCH ×2 (09:00→09:32)
--- NOTE | 2016-10-27 09:05 | OP ---
DATE OF OPERATION: 10/26/16 - ROOM #346 DATE OF : 57 SURGEON: Neisha Sawant MD SLIVER CUTTER: BIJAN Morrison. Jared was present throughout the procedure and did help with preparation of the leg, wound retraction, manipulation of the knee, and wound closure. ANESTHESIOLOGIST: Mahogany Medrano MD ANESTHESIA: Spinal with adductor nerve block. PRE-OP DIAGNOSIS: Severe end-stage degenerative osteoarthritis of the left knee joint. POST-OP DIAGNOSIS: Severe end-stage degenerative osteoarthritis of the left knee joint. OPERATIVE PROCEDURE: Left total knee arthroplasty. COMPLICATIONS: None. TOURNIQUET TIME: 52 minutes. ESTIMATED BLOOD LOSS: 250 cc. SPECIMEN: Bone and cartilage from the left knee joint, sent to pathology. HARDWARE USED: This is cemented [employer] total knee hardware. For the femur, a size 5 narrow left Oxinium femoral component. For the tibia, a size 3 left tibial baseplate. For the insert, a 15-mm posterior stabilized articular insert, size 3-4. For the patella, a 29-mm 3-peg all poly patella. Two packages of Simplex bone cement were used. BRIEF HISTORY/INDICATION: Ms. Townsend is a 60-year-old female with years of increasingly severe left knee pain. She failed conservative treatment with anti - inflammatories, pain medications, intra-articular injections, and physical therapy. Radiographs showed severe gqxc-ox-kaue arthritis. The patient did have a gastric bypass surgery and lost a significant amount of weight. She had great a success after right total knee arthroplasty and wished to proceed with the left. Informed consent was obtained from the patient. She understood the risks of procedure included, but were not limited to bleeding, infection, damage to nearby structures, continued pain, need for further surgery, intraoperative fracture, nerve palsy, hardware failure or loosening, knee stiffness, loss of motion, stroke, heart attack, blood clot, and . She wished to proceed. INTRAOPERATIVE FINDINGS: Intraoperatively, the patient was noted to have severe bone loss of the medial tibial plateau. She had extensive osteoarthritis in all three compartments. She had extensive osteophyte formation. She also was noted to have significant recurvatum before the case. DESCRIPTION OF PROCEDURE: Ms. Townsend was identified in the preanesthesia unit. Her left lower extremity was marked as the correct operative site. Informed consent was signed and placed in the chart. The patient was taken to the operating room and placed under spinal anesthesia with an adductor nerve block. A Novak catheter was placed. Tourniquet was placed on the left thigh. Left lower extremity was prepped and draped in the usual sterile fashion. Preop time -out was made to correctly identify the patient's side and site. Appropriate perioperative antibiotics were given within 1 hour of incision. Tourniquet was inflated and total tourniquet time for this procedure was 52 minutes. A 14-cm midline incision was made with a 10-blade and carried down to the extensor mechanism. Extensor mechanism was then incised with medial parapatellar arthrotomy incision. Patella was subluxed laterally. Electrocautery was used to subperiosteally elevate the soft tissue off the superomedial tibia. It was immediately noted that there was deformation and extensive bone loss along the medial tibia plateau. The knee was flexed up. There was no ACL and there was remaining meniscus anteriorly, both medially and laterally. A drill was used to enter the distal femur. Intramedullary distal femoral cutting guide was placed and pinned into position. Oscillating saw was used to make the appropriate distal femoral cut. An external rotation guide was then pinned down the distal femur and the distal femur was sized to a size 5. Size 5 multi-cutting jig was pinned on the distal femur. Oscillating saw was used to make the appropriate 4 chamfer cuts. PCL was completely released. The tibia was subluxed anteriorly. Extramedullary tibial cutting guide was placed on the proximal tibia. Proximal tibial cut was made with an oscillating saw. The bone was carefully removed. The knee was brought out into full extension. MCL was intact, but was noted to have some laxity. Medial and lateral ligaments were balanced appropriately. Flexion and extension gaps were well balanced. The knee was flexed up. Lamina smoke chaser was placed both medially and laterally. Any remaining meniscus was carefully removed with electrocautery. Posterior osteophytes were removed using curette and curved osteotome. A size 5 left narrow femoral trial was impacted on to the distal femur. This trial had good fit. The box for the posterior stabilized implant was prepared using a reamer and box cut osteotome. A size 3 tibial trial with a 13 mm insert trial was placed. The knee was taken through a range of motion and noted to have full extension with improved 1 to 2 degrees of recurvatum. The patient's body habitus did limit flexion past 120 degrees. The patella was everted. 9 mm of patellar bone and cartilage was carefully removed. The patella was sized to a size 29. Three peg holes were drilled through the size 29 guide. Trial 29 patella was placed and the knee was taken through range of motion. The knee had good patellofemoral tracking. All trials were carefully removed. Tibia was subluxed anteriorly and sized to a size 3. Proximal tibia was prepared using a keel punch. All bony cut surfaces were copiously irrigated with sterile saline and dried. Final implants were cemented into place starting with the tibia, followed by the femur , and lastly the patella. A 15-mm insert trial was placed and the knee was brought out into full extension. Tourniquet was turned down at 52 minutes. The knee was copiously irrigated with sterile saline. Once the cement had fully cured, the insert trial was removed. Any excess cement was carefully removed from around the implants and capsule. Electrocautery was used to obtain meticulous hemostasis. Final insert chosen was 15 mm posterior stabilized articular insert, size 3-4. This was locked into position on the tibial tray. The stability of the insert was checked and rechecked and noted to be stable. Final range of motion of the knee was full extension without recurvatum to 120 degrees of flexion. Flexion was limited by body habitus. The patellofemoral tracking was satisfactory. The knee was copiously irrigated with sterile saline. The extensor mechanism was closed using interrupted #1 Vicryls over a medium Hemovac drain. The rest of the incision was closed in a layered fashion using 0 and 2-0 Vicryls. The skin was closed using running 3-0 nylon suture. A sterile Xeroform, 4x4's, and Webril were used to cover the incision. The patient's anesthesia was reversed without difficulty. She was taken to the PACU in stable condition. Intended weightbearing will be weightbearing as tolerated. Intended DVT prophylaxis will be Coumadin with a Lovenox bridge. [id number]/[facility] #: [id number] [place]
[2016-10-27] MEDS: Docusate CAP* 100 MG PO SCH ×2 (09:26→20:41)
[2016-10-27] MEDS: Losartan TAB* 25 MG PO SCH (09:26)
[2016-10-27] MEDS: Magnesium Hydroxide LIQ* 30 ML UDC PO SCH ×2 (09:27→20:41)
--- NOTE | 2016-10-27 11:35 | PN ---
Progress Note - Progress Note SOAP: Subjective: 61 y/o female s/p LEFT tota knee replacement 10/[address] Sawant. Patient reports feeling well, feels surgical dressing is restricting her movements however does not feel uncomfortable/ painful. Pain well controlled. VSS, afebrile overnight. Objective: General- Well appearing, NAD resting comfortably in chair MSK- SUrgical dressing intact, no drainage noted, PT 2+ b/l, neg homans b/l, + DF/PF sensation intact grossly b/l LEs Vital Signs Temp 98.8 F 10/27/16 08:17 Pulse 94 10/27/16 08:17 Resp 16 10/27/16 09:27 BP 114/67 10/27/16 08:17 Pulse Ox 97 10/27/16 08:17 Intake & Output 10/26/16 10/27/16 10/27/16 18:59 06:59 18:59 Intake Total 2930 2297 700 Output Total 950 200 Balance 2930 1347 500 Weight 197 lb Intake: IV Fluids 2450 892 700 LR 2400 892 700 NS 50ML, Cefazolin 2G 50 IVPB 55 ABX - CEFAZOLIN 55 Oral 480 1350 Output: Novak 950 200 Other: # Bowel Movements 0 Laboratory Results - last 24 hr 10/27/16 10/27/16 10/27/16 06:34 06:34 06:34 Hgb 8.6 L Hct 26 L INR (Anticoag Therapy) 1.14 H Sodium 137 Potassium 3.5 Chloride 104 Carbon Dioxide 28 Anion Gap 5 BUN 11 Creatinine 0.66 Est GFR ( Amer) 117.5 Est GFR (Non-Af Amer) 91.4 BUN/Creatinine Ratio 16.7 Glucose 91 Calcium 7.9 L Assessment: 61 y/o female s/p LEFT tota knee replacement 10/[address] Sawant. Plan: - DVT prophylaxis- Lovenox, coumadin. INR 14. 6mg coumadin tonight. - COntinue PT - COntinue current pain regimen. - Likely D/C to home this weekend Active Medications Generic Name Dose Route Start Last Admin Trade Name Freq PRN Reason Stop Dose Admin Acetaminophen 650 mg 10/27/16 05:00 Tylenol Tab* PO Q4H PRN mild pain or fever Bisacodyl 10 mg 10/26/16 14:28 Dulcolax Supp* IN DAILY PRN constipation Diphenhydramine HCl 12.5 mg 10/27/16 05:00 Benadryl Iv* IV Q6H PRN PRURITIS Diphenhydramine HCl 25 mg 10/27/16 05:00 Benadryl Po* PO Q6H PRN INSOMNIA Docusate Sodium 100 mg 10/26/16 21:00 10/27/16 09:26 Colace Cap* PO 100 mg BID RUPA Administration Duloxetine HCl 30 mg 10/27/16 09:32 Cymbalta Cap* PO QAM RUPA Enoxaparin Sodium 30 mg 10/27/16 15:00 Lovenox(*) SUBCUT Q24H RUPA Cefazolin Sodium/Dextrose 1 gm in 50 mls @ 200 mls/hr 10/26/16 20:00 04:13 Kefzol 1 Gm In Dextrose Duplex (*) IVPB 10/27/16 12:14 200 mls/hr Q8H RUPA Administration Lactated Ringer's 1,000 mls @ 100 mls/hr 10/26/16 15:00 10/27/16 02:30 Lactated Ringers 1000 Ml Bag* IV 100 mls/hr PER RATE RUPA Administration Lactulose 30 ml 10/26/16 14:28 Lactulose* PO Q6H PRN constipation Losartan Potassium 50 mg 10/27/16 09:00 10/27/16 09:26 Cozaar Tab* PO 50 mg QAM RUPA Administration Magnesium Hydroxide 30 ml 10/26/16 21:00 10/27/16 09:27 Milk Of Magnesia Liq* PO 30 ml BID RUPA Administration Morphine Sulfate 5 mg 10/27/16 05:00 Morphine Inj (Syringe)* IV Q2H PRN PAIN Ondansetron HCl 4 mg 10/27/16 05:00 Zofran Inj* IV Q6H PRN nausea Ondansetron HCl 4 mg 10/27/16 05:00 Zofran Tab* PO Q6H PRN NAUSEA Oxycodone HCl 10 mg 10/27/16 05:00 Roxycodone Tab* PO Q4H PRN breaktrhough pain Oxycodone/Acetaminophen 1 tab 10/26/16 13:14 Percocet 5/325 Tab* PO 10/27/16 18:00 ONCE PRN PAIN - MODERATE Oxycodone/Acetaminophen 2 tab 10/27/16 05:00 10/27/16 09:27 Percocet 5/325 Tab* PO 2 tab Q3H PRN Administration PAIN - MODERATE Pharmacy Profile Note 0 note 10/26/16 17:00 10/26/16 17:17 Coumadin Daily Reminder* FOLLOW UP 1 note 1700 RUPA Administration Polyethylene Glycol/Electrolytes 17 gm 10/26/16 14:28 Miralax* PO DAILY PRN Constipation Warfarin Sodium 6 mg 10/27/16 17:00 Coumadin Tab(*) PO 10/27/16 17:01 ONCE ONE Protocol
[2016-10-27] MEDS: DULoxetine DR CAP* 30 MG CAP.DR PO SCH (11:54)
[2016-10-27] MEDS ORDERED: Enoxaparin(*) 30 MG/0.3 ML SYR SUBCUT SCH (15:00)
--- NOTE | 2016-10-27 15:25 | PN ---
Subjective Date of Service: 10/27/16 Interval History: Ms. Townsend states that she is feeling pretty well this afternoon though she does complain of pain in her left knee. She denies other complaint including chest pain, SOB, nausea, or abdominal pain. Objective Active Medications: Acetaminophen (Tylenol Tab*) 650 mg PO Q4H PRN Bisacodyl (Dulcolax Supp*) 10 mg KS DAILY PRN Diphenhydramine HCl (Benadryl Iv*) 12.5 mg IV Q6H PRN Diphenhydramine HCl (Benadryl Po*) 25 mg PO Q6H PRN Docusate Sodium (Colace Cap*) 100 mg PO BID RUPA Duloxetine HCl (Cymbalta Cap*) 30 mg PO 0900 RUPA Enoxaparin Sodium (Lovenox(*)) 30 mg SUBCUT Q24H RUPA Lactated Ringer's (Lactated Ringers 1000 Ml Bag*) 1,000 mls @ 100 mls/hr IV PER RATE RUPA Lactulose (Lactulose*) 30 ml PO Q6H PRN Losartan Potassium (Cozaar Tab*) 50 mg PO QAM RUPA Magnesium Hydroxide (Milk Of Magnesia Liq*) 30 ml PO BID RUPA Morphine Sulfate (Morphine Inj (Syringe)*) 5 mg IV Q2H PRN Ondansetron HCl (Zofran Inj*) 4 mg IV Q6H PRN Ondansetron HCl (Zofran Tab*) 4 mg PO Q6H PRN Oxycodone HCl (Roxycodone Tab*) 10 mg PO Q4H PRN Oxycodone/Acetaminophen (Percocet 5/325 Tab*) 1 tab PO ONCE PRN Oxycodone/Acetaminophen (Percocet 5/325 Tab*) 2 tab PO Q3H PRN Pharmacy Profile Note (Coumadin Daily Reminder*) 0 note FOLLOW UP 1700 RUPA Polyethylene Glycol/Electrolytes (Miralax*) 17 gm PO DAILY PRN Warfarin Sodium (Coumadin Tab(*)) 6 mg PO ONCE ONE Warfarin Sodium (Coumadin Tab(*)) 6 mg PO ONCE@1700 ONE Vital Signs 10/26/16 10/26/16 10/26/16 15:30 15:45 16:00 Temperature Pulse Rate 44 50 47 Respiratory 16 14 14 Rate Blood Pressure 141/80 164/91 161/68 (mmHg) O2 Sat by Pulse 100 100 98 Oximetry 10/26/16 10/26/16 10/26/16 16:15 16:35 16:44 Temperature 97.7 F 97.9 F Pulse Rate 47 52 53 Respiratory 14 16 16 Rate Blood Pressure 159/84 139/84 135/78 (mmHg) O2 Sat by Pulse 97 99 100 Oximetry 10/26/16 10/26/16 10/26/16 17:02 17:03 17:16 Temperature 97.9 F Pulse Rate 53 Respiratory 18 16 16 Rate Blood Pressure 135/78 (mmHg) O2 Sat by Pulse 100 Oximetry 10/26/16 10/26/16 10/26/16 17:40 18:24 18:56 Temperature 98.5 F 97.5 F Pulse Rate 62 69 Respiratory 16 16 Rate Blood Pressure 119/69 120/55 (mmHg) O2 Sat by Pulse 100 97 98 Oximetry 10/26/16 10/26/16 10/26/16 20:27 20:44 21:51 Temperature 98.0 F Pulse Rate 62 Respiratory 16 18 16 Rate Blood Pressure 114/60 (mmHg) O2 Sat by Pulse 98 Oximetry 10/26/16 10/26/16 10/27/16 23:15 23:49 00:02 Temperature 98.3 F 98.3 F Pulse Rate 66 66 Respiratory 16 16 16 Rate Blood Pressure 118/54 118/54 (mmHg) O2 Sat by Pulse 98 98 Oximetry 10/27/16 10/27/16 10/27/16 02:26 03:14 03:15 Temperature 98.1 F 98.1 F Pulse Rate 75 75 Respiratory 16 16 16 Rate Blood Pressure 120/58 120/58 (mmHg) O2 Sat by Pulse 93 93 Oximetry 10/27/16 10/27/16 10/27/16 04:26 05:53 07:37 Temperature Pulse Rate Respiratory 16 18 16 Rate Blood Pressure (mmHg) O2 Sat by Pulse 97 Oximetry 10/27/16 10/27/16 10/27/16 07:53 08:17 09:27 Temperature 98.8 F Pulse Rate 94 Respiratory 16 14 16 Rate Blood Pressure 114/67 (mmHg) O2 Sat by Pulse 97 Oximetry 10/27/16 10/27/16 10/27/16 11:27 12:13 13:00 Temperature 98.2 F Pulse Rate 62 Respiratory 16 13 16 Rate Blood Pressure 134/76 (mmHg) O2 Sat by Pulse 99 Oximetry Oxygen Devices in Use Now: None Appearance: Female sitting up in chair in NAD Ears/Nose/Mouth/Throat: Mucous Membranes Moist Neck: Trachea Midline Respiratory: Symmetrical Chest Expansion and Respiratory Effort, Clear to Auscultation Cardiovascular: NL Sounds; No Murmurs; No JVD, No Edema Abdominal: NL Sounds; No Tenderness; No Distention Extremities: No Edema Skin: No Rash or Ulcers Neurological: Alert and Oriented x 3, NL Muscle Strength and Tone Nutrition: Taking PO's Result Diagrams: 10/27/16 06:34 10/27/16 06:34 Assess/Plan/Problems-Billing Assessment: Ms. Townsend is a 61 yo female with a PMH of hypertension, obesity, and sleep apnea who was admitted on 10/26/16 for an elective left total knee arthroplasty. - Patient Problems (1) S/P knee replacement Comment: POD # 1. Management per ortho. Pain meds prn, bowel regimen. PT/OT. Monitor H/H. (2) HTN (hypertension) Comment: BP well controlled. Continue losartan. (3) Sleep apnea Comment: Continue home CPAP. (4) DVT prophylaxis Comment: Warfarin and Lovenox per Ortho (5) Full code status Status and Disposition: Inpatient with disposition per ortho. Hospital Medicine will sign off for now but do not hesitate to call with any further questions or concerns.
[2016-10-27] MEDS ORDERED: Warfarin TAB(*) 6 MG PO ONE ×2 (17:00)
[2016-10-28] MEDS: oxyCODONE/Acetamin 5/325 MG* TAB PO PRN ×3 (00:46→09:48)
[2016-10-28 06:15] LABS: Hematocrit 26 % (35-47); Hemoglobin 8.6 g/dl (12.0-16.0)
[2016-10-28 08:18] VITALS: BP 134/77
[2016-10-28] MEDS: Docusate CAP* 100 MG PO SCH (08:52)
[2016-10-28] MEDS: Losartan TAB* 25 MG PO SCH (08:53)
[2016-10-28] MEDS: DULoxetine DR CAP* 30 MG CAP.DR PO SCH (08:53)
[2016-10-28] MEDS: Magnesium Hydroxide LIQ* 30 ML UDC PO SCH (08:53)
--- NOTE | 2016-10-28 10:53 | PN ---
Progress Note - Progress Note SOAP: Subjective: 61 y/o female s/p LEFT total knee replacement 10/[address] Sawant. Patient reports feeling well, feels surgical dressing is restricting her movements however does not feel uncomfortable/ painful. Pain well controlled. VSS, afebrile overnight. Objective: General- Well appearing, NAD resting comfortably in bed MSK- Surgical dressing intact changed today , incision is well approximated with no erythema or warmth, PT and DP 2+ b/l, neg homans b/l, + DF/PF sensation intact grossly Vital Signs Temp 98.3 F 10/28/16 07:44 Pulse 89 10/28/16 07:44 Resp 20 10/28/16 09:48 BP 134/77 10/28/16 07:44 Pulse Ox 98 10/28/16 07:44 Intake & Output 10/27/16 10/28/16 10/28/16 18:59 06:59 18:59 Intake Total 2190 860 540 Output Total 500 800 250 Balance 1690 60 290 Intake: IV Fluids 950 ABX - CEFAZOLIN 50 LR 900 Oral 1240 860 540 Output: Urine 300 800 250 [place] 200 Assessment: 61 y/o female s/p LEFT tota knee replacement 10/[address] Sawant. Plan: Pt will be discharged today She will continue PT at home Lovenox 30 mg will be given before she leaves DVT prophylaxis- coumadin 8mg tonight, 6mg tomorrow night and recheck on sunday.
[2016-10-28] MEDS ORDERED: Enoxaparin(*) 30 MG/0.3 ML SYR SUBCUT SCH (11:00)
--- NOTE | 2016-10-29 03:17 | DS ---
DISCHARGE SUMMARY: DATE OF ADMISSION: 10/26/16 DATE OF DISCHARGE: 10/28/16 ADMITTING DIAGNOSIS: Left knee osteoarthritis. CONSULTATIONS: Physical Therapy, Occupational Therapy, and hospital medicine. HISTORY OF PRESENT ILLNESS: Ms. Townsend is a 61-year-old female who has continued complaints of left knee pain due to left knee osteoarthritis. She has failed conservative treatment and elected to proceed with a left total knee arthroplasty. This was done on 10/26/[address] Sawant. HOSPITAL COURSE: The patient was admitted to [facility] on 10/26/16 and underwent a left total knee arthroplasty with no complications. The patient recovered briefly on the postop anesthesia care unit and was then transferred to the short-stay surgical unit in stable condition. On postop day #1, the patient's H and H was 8.6 and 26 with an INR of 1.14 after 6 mg of Coumadin the night before. Dressing was clean, dry, and intact. Left lower extremity was neurovascularly intact. She could demonstrate dorsi and plantar flexion with good strength. The patient was able to get out of bed with physical therapy. The patient's pain was well controlled with Percocet 5/325 two tablets. On postop day 2, the urinary catheter was discontinued and the patient was able to void without difficulty. The incision was found to be benign with minimal drainage. No erythema, no warmth. The patient's H and H was 8.6 and 26 with an INR of 1.25 after 6 mg of Coumadin the night before. The patient's pain was well controlled and found to be stable for discharge. Throughout the hospital course, the vital signs remained stable and the patient was afebrile. DISCHARGE CONDITION: Good. DISCHARGE MEDICATIONS: 1. Percocet 5/325, take 1 to 2 tabs every 4 to 6 hours as needed for pain. 2. Colace, take as needed for constipation. 3. Warfarin 2 mg tablet, take as instructed by the provider. HOME MEDICATIONS: 1. Vitamin D. 2. Multivitamin. 3. Vitamin B. 4. Cymbalta 20 mg once a day. 5. Cozaar 50 mg once a day. 6. Ibuprofen. 7. Tylenol as needed. DISCHARGE INSTRUCTIONS: Follow up 2 weeks postop for suture removal. Keep incision clean, dry, and you are able to shower in 2 to 3 days. Do not submerge in any water. Please pat dry when done. Continue with physical therapy at home. Sleep with a pillow under the ankle in order to extend the knee. Do not place pillow under the knee when sleeping. Do not drive while on narcotic pain medications. Take Percocet 5/325 every 4 to 6 hours as needed for pain, Colace as needed for constipation, and warfarin to be taken as instructed by the provider, Sunday 8 mg of warfarin, Sunday 6 mg of warfarin, and then Sunday recheck warfarin. Please call the office if the temperature is greater than 101.5, pain continues to increase despite medication, increased redness along the incision or with increased heat, large amount of bleeding, or yellowish drainage from the wound and increased calf pain. Please go to the ER if there is shortness of breath or increased chest pain. BIJAN BARRETT [id number]/[facility] #: [id number] KEYSHAWN
== END 2016-10-28 12:00 | disposition home health service (06) | DRG 302 ==
LOC: AA 08:42 → SSU 14:29
PROVIDERS: ADMIT Orthopaedic Surgery Adult Reconstructive Orthopaedic Surgery; ATTEND Orthopaedic Surgery Adult Reconstructive Orthopaedic Surgery
PROC: 0SRD0J9 Replacement of Left Knee Joint with Synthetic Substitute, Cemented, Open Approach (ICD-10-PCS; principal; 2016-10-26 11:00)
DX: M17.12 Unilateral primary osteoarthritis, left knee (principal); I10 Essential (primary) hypertension; E66.9 Obesity, unspecified; E03.9 Hypothyroidism, unspecified; K44.9 Diaphragmatic hernia without obstruction or gangrene; Z96.651 Presence of right artificial knee joint; G47.33 Obstructive sleep apnea (adult) (pediatric); M25.762 Osteophyte, left knee; Z68.38 Body mass index [BMI] 38.0-38.9, adult; Z98.84 Bariatric surgery status; Z98.51 Tubal ligation status; Z82.49 Family history of ischemic heart disease and other diseases of the circulatory system; Z83.3 Family history of diabetes mellitus; Z87.442 Personal history of urinary calculi; Z80.3 Family history of malignant neoplasm of breast; Z80.49 Family history of malignant neoplasm of other genital organs; Z79.01 Long term (current) use of anticoagulants
CPT/HCPCS: 36415; 62323; 80048; 85014; 85018; 85610; 94760; A9270-GY; C1776; J0690; J1170; J1650; J1885; J2250; J2405; J2704; J3010

== ENCOUNTER 2017-06-28 17:16 | Emergency (ER) | payer BC, OTHER ==
--- NOTE | 2017-06-28 18:03 | RAD ---
Indication: Fever, sepsis. Single frontal view of the chest performed at 1755 hours was reviewed. Comparison is made with previous exam dated August 11, 2016. No mediastinal shift is noted. Heart is of normal size and configuration. Lung dalal appear clear. IMPRESSION: NO ACTIVE CARDIOPULMONARY DISEASE IS NOTED.
[2017-06-28 18:31] LABS: ABS Basophils 0 10^3/ul (0-0.2); ABS Eosinophils 0 10^3/ul (0-0.6); ABS Lymphocytes 0.5 10^3/ul (1.0-4.8); ABS Monocytes 0.4 10^3/ul (0-0.8); ABS Neutrophils 9.6 10^3/ul (1.5-7.7); ABS Nucleated RBC 0 10^3/ul; Eosinophil % 0.2 % (0-6); Hematocrit 35 % (35-47); Hemoglobin 11.8 g/dl (12.0-16.0); Lymphocyte % 4.4 % (25-47); Mean Corpuscular HGB Conc 33 g/dl (31-36); Mean Corpuscular Hemoglobin 27 pg (27-31); Mean Corpuscular Volume 82 fL (80-97); Mean Platelet Volume 8 um3 (7.4-10.4); Nucleated Red Blood Cells % 0; Platelet Count 222 10^3/ul (150-450); Red Blood Count 4.32 10^6/ul (4.0-5.4); Red Cell Distribution Width 16 % (10.5-15); White Blood Count 10.6 10^3/ul (3.5-10.8)
[2017-06-28 18:45] LABS: EGFR Non-African American 73.2 (>60)
[2017-06-28] MEDS: NS 0.9% 1000 ML* 2,500 ML IV ONE (18:45)
[2017-06-28 18:50] LABS: INR 0.99 (0.77-1.02)
[2017-06-28] MEDS ORDERED: cefTRIAXone(*) 1 GM in NS 0.9% 50 ML* 50 ML IVPB ONE (18:55)
[2017-06-28] MEDS ORDERED: Ciprofloxacin 400MG IVPREMIX(* 400 MG/200 ML BAG IVPB ONE (18:56)
[2017-06-28 19:23] LABS: Urine Appearance Turbid; Urine Blood 2+ (Negative); Urine Color Yellow; Urine Ketones Trace (Negative); Urine Protein 2+(100 mg/dL) (Negative); Urine Urobilinogen Negative (Negative)
[2017-06-28 20:44] VITALS: BP 126/71
--- NOTE | 2017-06-29 16:08 | ED ---
Howard Umaña Gabriel, scribed for Med Gibbs MD on 06/28/17 at 1835 . GI/ HPI - HPI Summary HPI Summary: This patient is a 61 year old F presenting to [facility] with a chief complaint of possible kidney stone since earlier today. The patient rates the pain 2/10 in severity. Patient reports fever, chills, lower back pain, and nausea. Patient denies ABD pain, diarrhea, rash, dysuria, hematuria, and cough. Patient states she saw Dr. Gonzalez at 1630 and she had cloudy urine that was sent for culture. She contacted Dr. Gonzalez for her rising fever and he suggested she come to the ED. 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 Hx of kidney stones and CAD. - History of Current Complaint Chief Complaint: EDFever Time Seen by Provider: 06/28/17 17:41 Stated Complaint: FEVER Hx Obtained From: Patient Onset/Duration: Still Present Timing: Constant Severity: Moderate Current Severity: Moderate Pain Intensity: 2 Pain Radiates to: Back Associated Signs and Symptoms: Positive: Negative - ABD pain, diarrhea, rash, dysuria, hematuria, and cough, Other: - fever, chills, lower back pain, and nausea. 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/ HX OF GRAVES- RADIOIODINE ISOTOPE-2007 Denies: Hx Diabetes Cardiovascular History: Reports: Hx Hypercholesterolemia, Hx Hypertension, Other Cardiovascular Problems/Disorders - hypercalcimia Denies: Hx Congestive Heart Failure, Hx Pacemaker/ICD Respiratory History: Reports: Hx Sleep Apnea GI History: Reports: Hx Gastroesophageal Reflux Disease, Hx Hiatal Hernia - RECENTLY DIAGNOSISED History: Reports: Hx Kidney Infection - JUST FINISHED CIPRO WILL TAKE PRIOR TO OR AGAIN, Hx Kidney Stones - ONE RT, Hx Renal Disease - CALCULI, Other Problems/Disorders - RENAL CALCULI, STENT Musculoskeletal History: Reports: Hx Arthritis - knees, Other Musculoskeletal History - LEFT KNEE PAIN Sensory History: Reports: Hx Contacts or Glasses - GLASSES Denies: Hx Cataracts, Hx Hearing Aid Opthamlomology History: Reports: Hx Contacts or Glasses - GLASSES Denies: Hx Cataracts Psychiatric History: Reports: Hx Panic Disorder - Cancer History Hx Chemotherapy: No Hx Radiation Therapy: No - Surgical History Surgery Procedure, Year, and Place: 1994 BTL [id number] URETEROSCOPY STENT LITHO [id number] STENT URETEROSCOPY [facility] Hx Anesthesia Reactions: No Infectious Disease History: No Infectious Disease History: Denies: Traveled Outside the [place] in Last 30 Days - Family History Known Family History: Positive: Cardiac Disease Negative: Respiratory Disease, Seizure Disorder, Blood Disorder - Social History Alcohol Use: Daily Alcohol Amount: 1-2 glasses a day Substance Use Type: Reports: None Smoking Status (MU): Never Smoked Tobacco Review of Systems Positive: Fever, Chills Negative: Sore Throat Negative: Chest Pain Negative: Shortness Of Breath, Cough Positive: Nausea. Negative: Abdominal Pain, Vomiting Negative: dysuria, hematuria Positive: Other - low back pain . Negative: Myalgia, Edema Negative: Rash Neurological: Negative - dizziness All Other Systems Reviewed And Are Negative: Yes Physical Exam - Summary Physical Exam Summary: Constitutional: Well-developed, Well-nourished, Alert. (-) Distressed Skin: Warm, Dry HENT: Normocephalic; Atraumatic Eyes: Conjunctiva normal Neck: Musculoskeletal ROM normal neck. (-) JVD, (-) Stridor, (-) Tracheal deviation Cardio: Rhythm regular, rate normal, Heart sounds normal; Intact distal pulses; The pedal pulses are 2+ and symmetric. Radial pulses are 2+ and symmetric. (-) Murmur Pulmonary/Chest wall: Effort normal. (-) Respiratory distress, (-) Wheezes, (-) Rales Abd: Soft, (-) Tenderness, (-) Distension, (-) Guarding, (-) Rebound Musculoskeletal: (-) Edema Lymph: (-) Cervical adenopathy Neuro: Alert, Oriented x3 Psych: Mood and affect Normal Triage Information Reviewed: Yes Vital Signs On Initial Exam: Initial Vitals Temp Pulse Resp BP Pulse Ox 99.6 F 101 18 147/80 97 06/28/17 17:19 06/28/17 17:19 06/28/17 17:19 06/28/17 17:19 06/28/17 17:19 Vital Signs Reviewed: Yes Diagnostics - Vital Signs Vital Signs Temp Pulse Resp BP Pulse Ox 01/18/18 17:19 99.6 F 101 18 147/80 97 - Laboratory Lab Results: Lab Results 06/28/17 Range/Units 18:05 WBC 10.6 (3.5-10.8) 10^3/ul RBC 4.32 (4.0-5.4) 10^6/ul Hgb 11.8 L (12.0-16.0) g/dl Hct 35 (35-47) % MCV 82 (80-97) fL MCH 27 (27-31) pg MCHC 33 (31-36) g/dl RDW 16 H (10.5-15) % Plt Count 222 (150-450) 10^3/ul MPV 8 (7.4-10.4) um3 Neut % (Auto) 91.0 H (38-83) % Lymph % (Auto) 4.4 L (25-47) % [place] % (Auto) 4.2 (1-9) % Eos % (Auto) 0.2 (0-6) % Baso % (Auto) 0.2 (0-2) % Absolute Neuts (auto) 9.6 H (1.5-7.7) 10^3/ul Absolute Lymphs (auto) 0.5 L (1.0-4.8) 10^3/ul Absolute Monos (auto) 0.4 (0-0.8) 10^3/ul Absolute Eos (auto) 0 (0-0.6) 10^3/ul Absolute Basos (auto) 0 (0-0.2) 10^3/ul Absolute Nucleated RBC 0 10^3/ul Nucleated RBC % 0 Result Diagrams: 06/28/17 18:05 06/28/17 18:05 Lab Statement: Any lab studies that have been ordered have been reviewed, and results considered in the medical decision making process. - Radiology CXR Radiology Interpretation Completed By: Radiologist - no active cardio pulmonary disease noted. ED physician has reviewed this radiology report. GIGU Course/Dx - Course Assessment/Plan: This patient is a 61 year old F presenting to [facility] with a chief complaint of possible kidney stone since earlier today. The patient rates the pain 2/10 in severity. Patient reports fever, chills, lower back pain, and nausea. Patient denies ABD pain, diarrhea, rash, dysuria, hematuria, and cough. Patient states she saw Dr. Gonzalez at 1630 and she had cloudy urine that was sent for culture. She contacted Dr. Gonzalez for her rising fever and he suggested she come to the ED. 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 Hx of kidney stones and CAD. . CXR reveals, per radiologist, no active cardio pulmonary disease noted. ED physician has reviewed this radiology report. Test results with no significant abnormalities. In the ED course the patient was given IV fluids and cirpo. DR Gonzalez states he sent her sample to the lab for a culture. We discussed patient care with Dr. Gonzalez and they recommended to give the patient oral antibiotics and send her home. Patient will be discharged with prescription for Cipro and follow up from Dr. Gonzalez. The patient is agreeable with this plan. - Diagnoses Provider Diagnoses: UTI (urinary tract infection) - Physician Notifications Discussed Care Of Patient With: Jarrod Gonzalez Time Discussed With Above Provider: 18:30 Instructed by Provider To: Other - We discussed patient care with Dr. Gonzalez and they recommended to give the patient oral antibiotics and send her home. Discharge - Discharge Plan Condition: Stable Disposition: HOME Prescriptions: Ciprofloxacin TAB* [Cipro 500 MG TAB*] 500 mg PO BID #14 tab Patient Education Materials: Ciprofloxacin (By mouth), Urinary Tract Infection in Women (ED) Referrals: Sofy Viera MD [Primary Care Provider] - Jarrod Gonzalez MD [Medical Doctor] - 3 Days Additional Instructions: RETURN TO EMERGENCY DEPARTMENT FOR ANY NEW OR WORSENING SYMPTOMS The documentation as recorded by the Howard monsalve Gabriel accurately reflects the service I personally performed and the decisions made by me, Med Gibbs MD.
== END 2017-06-28 20:45 | disposition home or self-care (01) ==
LOC: ED 17:16
DX: N39.0 Urinary tract infection, site not specified (principal); Z86.79 Personal history of other diseases of the circulatory system; Z87.19 Personal history of other diseases of the digestive system; Z87.442 Personal history of urinary calculi
CPT/HCPCS: 36415; 71045; 80053; 81003; 81015; 83605; 84484; 85025; 85610; 85730; 87040; 99283; J0744

== ENCOUNTER 2017-10-08 06:33 | Day surgery (SDC) | payer BC ==
[~2017-10-08 06:33] MED LIST changes: +Buffered Lidocaine 0.9% SYRIN* 5 ML/SYR SYRINGE INTRADERM ONE; -Buffered Lidocaine 1% SYR 3ML* 3 ML/SYR SYRINGE INTRADERM ONE; -Famotidine IV* 10 MG/ML 2 ML (20 mg) IV ONE
[2017-10-08] MEDS ORDERED: Buffered Lidocaine 0.9% SYRIN* 5 ML/SYR SYRINGE ONE (06:54)
[2017-10-08] MEDS ORDERED: Bupivacaine 0.25% SDV* 30 ML ONE (09:31)
[2017-10-08] MEDS ORDERED: fentaNYL* 50 MCG/ML 2 ML VIAL (100 MCG VIAL) ONE (09:39)
[2017-10-08] MEDS ORDERED: Midazolam* 1 MG/ML 2 ML VIAL (2 MG) ONE (09:39)
[2017-10-08] MEDS ORDERED: Propofol* 10 MG/ML 20 ML BTL IV PUSH ONE (09:42)
[2017-10-08] MEDS ORDERED: Naloxone* 0.4 MG/ML 1 ML VIAL IV PRN (09:56)
[2017-10-08 10:54] VITALS: BP 158/84
[2017-10-08] MEDS ORDERED: Losartan TAB* 25 MG PO ONE (11:00)
--- NOTE | 2017-10-08 14:45 | OP ---
DATE OF OPERATION: 10/08/17 - SDS DATE OF : 57 SURGEON: Antonio Yanez MD. BRICKLAYER APPRENTICE: BIJAN Pisano. ANESTHESIOLOGIST: Dr. Vizcarra. ANESTHESIA: Local MAC. PRE-OP DIAGNOSIS: Right carpal tunnel syndrome. POST-OP DIAGNOSIS: Right carpal tunnel syndrome. OPERATIVE PROCEDURE: Right open carpal tunnel release. INDICATIONS: Ashlee has had progressive disease. She has it bilaterally; we decided to do the right first. ESTIMATED BLOOD LOSS: 2 mL. COMPLICATIONS: None. FINDINGS: As expected. DESCRIPTION OF PROCEDURE: Ashlee was seen in the preoperative holding area. The correct side, site and the procedure were identified. We came back to the operating room. The arm was prepped and draped in usual fashion. A time-out was performed. I then infiltrated the operative area with 0.25% plain Marcaine . I began by making a 2 to 3 cm longitudinal incision in the standard location for an open carpal tunnel release. Dissection was carried down through subcutaneous tissue and palmar fascia. The transverse carpal ligament was identified. The fascia and subcutaneous tissues proximally were released and retracted volarly and ulnarly. I then took a 15 blade and released the transverse carpal ligament just off the radial aspect of the hook of the hamate. The release was completed distally and then proximally I came and released the remainder of the transverse carpal ligament in the distal antebrachial fascia with tenotomy scissors to a level of several centimeters proximal to the wrist flexion crease. I then irrigated out the wound. I checked, there was absolutely no compression on the nerves, so the skin was closed with 4-0 nylon suture. Wounds were dressed and she was taken to recovery room in stable condition. [id number]/[facility] #: [id number] MTDD
== END 2017-10-08 11:04 | disposition home or self-care (01) ==
LOC: OR 06:33
PROVIDERS: ATTEND Orthopaedic Surgery Hand Surgery
DX: G56.01 Carpal tunnel syndrome, right upper limb (principal); Z86.718 Personal history of other venous thrombosis and embolism; I10 Essential (primary) hypertension; I48.91 Unspecified atrial fibrillation; M19.90 Unspecified osteoarthritis, unspecified site; E11.9 Type 2 diabetes mellitus without complications; G47.33 Obstructive sleep apnea (adult) (pediatric)
CPT/HCPCS: A9270-GY; J2250; J2704; J3010

== ENCOUNTER 2017-10-29 13:01 | Day surgery (SDC) | payer BC ==
[2017-10-29] MEDS ORDERED: Buffered Lidocaine 0.9% SYRIN* 5 ML/SYR SYRINGE ONE (13:07)
[2017-10-29] MEDS ORDERED: Bupivacaine 0.25% SDV* 30 ML ONE (16:00)
[2017-10-29] MEDS ORDERED: fentaNYL* 50 MCG/ML 2 ML VIAL (100 MCG VIAL) ONE (16:12)
[2017-10-29] MEDS ORDERED: Midazolam* 1 MG/ML 2 ML VIAL (2 MG) ONE (16:12)
[2017-10-29] MEDS ORDERED: Propofol* 10 MG/ML 20 ML BTL IV PUSH ONE (16:15)
[2017-10-29] MEDS ORDERED: Acetaminophen TAB* 325 MG PO PRN (16:23)
[2017-10-29] MEDS ORDERED: oxyCODONE/Acetamin 5/325 MG* TAB PO PRN (16:23)
[2017-10-29] MEDS ORDERED: Naloxone* 0.4 MG/ML 1 ML VIAL IV PRN (16:23)
[2017-10-29 17:14] VITALS: BP 170/106
--- NOTE | 2017-10-30 10:50 | OP ---
DATE OF OPERATION: 10/29/17 - SDS DATE OF : 57 SURGEON: Antonio Yanez MD SOCKET WELDER HELPER: BIJAN Pisano. ANESTHESIOLOGIST: Dr. Vizcarra. ANESTHESIA: Local, MAC. PRE-OP DIAGNOSIS: Left carpal tunnel syndrome. POST-OP DIAGNOSIS: Left carpal tunnel syndrome. OPERATIVE PROCEDURE: Left open carpal tunnel release. INDICATIONS: Ashlee is 62. She has had progressive carpal tunnel syndrome. We talked about risks and benefits. She wanted to proceed. ESTIMATED BLOOD LOSS: 2 mL. COMPLICATIONS: None. FINDINGS: As expected. DESCRIPTION OF PROCEDURE: Ashlee was seen in the preoperative holding area. The correct side, site, and procedure were identified. We came back to the operating room where the operative area the area was infiltrated with 0.25% plain Marcaine. The arm was then prepped and draped in the usual fashion. A time-out was performed. The arm was exsanguinated with the Esmarch and the tourniquet inflated to 250 mmHg. A 2 to 3 cm longitudinal incision was made in the standard location for an open carpal tunnel release. Dissection was carried down through the subcutaneous tissue and the palmar fascia. The fascia was released proximally and distally with the tenotomy scissors. I then released the transverse carpal ligament from distal to proximal, just off the radial aspect of the hook of the hamate. Once I got proximal, the subcutaneous tissue and palmar fascia was retracted volarly and ulnarly with the Tesha retractor. The remainder of the transverse carpal ligament was released with the tenotomy scissors under direct visualization together with the distal antebrachial fascia to a level several centimeters proximal to the wrist flexion crease. I then checked the decompression, everything looked really good. We irrigated out the wounds. Skin was closed with 4-0 nylon suture. The wound was dressed with Xeroform, 4 x 4, sterile Webril, and an John bandage. The tourniquet was deflated and she was taken to the recovery room in stable condition. [id number]/[facility] #: [id number] MTDOumar
== END 2017-10-29 17:15 | disposition home or self-care (01) ==
LOC: OR 13:01
PROVIDERS: ATTEND Orthopaedic Surgery Hand Surgery
DX: G56.02 Carpal tunnel syndrome, left upper limb (principal); I10 Essential (primary) hypertension; E03.9 Hypothyroidism, unspecified; Z86.718 Personal history of other venous thrombosis and embolism
CPT/HCPCS: J2250; J2704; J3010